=== PATIENT | female | born 1945 | race Caucasian/White ===

== ENCOUNTER 2020-06-28 20:41 | Emergency (ER) | payer MEDICARE, OTHER ==
[~2020-06-28 20:41] MED LIST: ASPIRIN81 MG PO; BASAGLAR K100 UNIT/1 SC; BENAZEPRIL HCL20 MG PO; CALCIUM 600 +1 EA12 PO; CHLORTHALIDONE50 MG PO; CLARITIN10 M2 PO; MELOXICAM7.5 MG PO; NOVOLOG 10100 UNITS1 INJ; PLAVIX 75 MG TA75 MG PO
== END 2020-06-28 23:10 | disposition home or self-care (01) ==
LOC: ER1 20:41
DX: M25.562 Pain in left knee (principal); M79.605 Pain in left leg; E11.9 Type 2 diabetes mellitus without complications; I48.91 Unspecified atrial fibrillation; I10 Essential (primary) hypertension
CPT/HCPCS: 85379; 85610; 85730; 99283

== ENCOUNTER → 2020-07-12 | Outpatient (CLI) | payer MEDICARE, OTHER | LOC: MRI 15:00 | DX: S83.207A Unspecified tear of unspecified meniscus, current injury, left knee, initial encounter (principal); M17.12 Unilateral primary osteoarthritis, left knee | CPT/HCPCS: 73721 ==

== ENCOUNTER → 2021-01-28 | Outpatient (CLI) | payer MEDICARE, OTHER | LOC: KOH-I 08:32 | DX: M25.561 Pain in right knee (principal); M19.90 Unspecified osteoarthritis, unspecified site; M16.11 Unilateral primary osteoarthritis, right hip | CPT/HCPCS: 73562 ==

== ENCOUNTER → 2021-06-07 | Outpatient (CLI) | payer MEDICARE, OTHER | LOC: KOH-I 13:15 | DX: M06.4 Inflammatory polyarthropathy (principal); M25.562 Pain in left knee; R60.9 Edema, unspecified; M17.12 Unilateral primary osteoarthritis, left knee | CPT/HCPCS: 73562 ==